=== PATIENT | female | born 1960 | race Caucasian/White ===

== ENCOUNTER → 2021-03-08 10:46 | Outpatient (CLI) | payer BC, SELFPAY ==
--- NOTE | ~2021-03-08 | CT_ITS ---
EXAMINATION: CT abdomen pelvis wo con DATE: 03/08/2021 11:18 INDICATION: Nephrolithiasis, right lower quadrant pain TECHNIQUE: Computed tomography (CT) of the abdomen and pelvis was performed without intravenous contr ast. The dose-length product (DLP) was 400.36 mGy-cm. Automated exposure control and iterative recons truction technique were employed. COMPARISON: None FINDINGS: Minimal dependent atelectasis is present in the lung bases. The heart size is normal. The l iver, spleen, pancreas, gallbladder, and adrenal glands are normal. There is a 6 mm stone at the righ t ureterovesicular junction which causes moderate right hydroureteronephrosis. There are four nonobst ructing stones of the left kidney which measure up to 3 mm. No pathologically enlarged abdominal or p elvic lymph nodes are identified. There is no free intraperitoneal gas or evidence of bowel obstructi on. A fat-containing umbilical hernia is noted. IMPRESSION: 1. 6 mm stone at the right ureterovesicular junction causing moderate right hydroureteronephrosis. 2. Nonobstructing left nephrolithiasis. Reviewed, dictated and finalized at location B. IMPRESSION: 1. 6 mm stone at the right ureterovesicular junction causing moderate right hyd roureteronephrosis. 2. Nonobstructing left nephrolithiasis.
== END ==
PROVIDERS: PCP Internal Medicine
DX: N20.2 Calculus of kidney with calculus of ureter (principal)
CPT/HCPCS: 74176

== ENCOUNTER → 2021-07-02 07:48 | Outpatient (CLI) | payer BC, SELFPAY ==
--- NOTE | ~2021-07-02 | US_ITS ---
EXAMINATION: US retroperitoneal comp DATE: 07/02/2021 08:21 INDICATION: Nephrolithiasis, right flank and pelvic pain TECHNIQUE: Multiple grayscale and Doppler ultrasound images of the kidneys were obtained. COMPARISON: CT, 03/08/2021 FINDINGS: The right kidney measures 10.3 x 4.8 x 5.1 cm. The left kidney measures 10.3 x 5.7 x 6.3 cm . The kidneys demonstrate normal parenchymal echogenicity. There is no hydronephrosis. The bladder is normal. IMPRESSION: 1. Normal kidneys without hydronephrosis. Reviewed, dictated and finalized at location B.
== END ==
PROVIDERS: PCP Internal Medicine
DX: N20.0 Calculus of kidney (principal)
CPT/HCPCS: 76770

== ENCOUNTER → 2021-10-02 10:15 | Outpatient (CLI) | payer BC, SELFPAY ==
--- NOTE | ~2021-10-02 | XR_ITS ---
EXAMINATION: XR abdomen/kub 1V INDICATION: Lower abdominal pain TECHNIQUE: Supine views of the abdomen were obtained on 2 radiographs. COMPARISON: CT, 03/08/2021 FINDINGS: There are stones measuring 7 mm and 3 mm in the lower pole of left kidney and 3 mm in the u pper pole of the left kidney. Bilateral pelvic calcifications likely reflect phleboliths. The visuali zed lung bases are clear. The bowel gas pattern is normal. There are no dilated loops of bowel. A mod erate volume of colonic stool is present. IMPRESSION: 1. Left nephrolithiasis. Reviewed, dictated and finalized at location B. ROLLER IMPRESSION: 1. Left nephrolithiasis.
== END ==
PROVIDERS: PCP Internal Medicine
DX: N20.0 Calculus of kidney (principal)
CPT/HCPCS: 74018

== ENCOUNTER → 2021-11-09 12:58 | Outpatient (CLI) | payer BC, SELFPAY ==
--- NOTE | ~2021-11-09 | MM_ITS ---
EXAMINATION: MM screening [facility] BI w leon HISTORY: Screening TECHNIQUE: Craniocaudal and mediolateral oblique 3-D tomosynthesis images were obtained and synthetic 2-D images were generated. CAD analysis was submitted and interpreted. COMPARISON: Comparison to multiple prior studies sequentially, with oldest reviewed study dated 09/25. BREAST PARENCHYMAL COMPOSITION: There are scattered areas of fibroglandular density. FINDINGS: There is no evidence of suspicious mass, calcification, or architectural distortion to sugg est malignancy in either breast. There has been no suspicious interval change. IMPRESSION: 1. No mammographic evidence of malignancy. 2. Recommend routine screening mammography in one year. BI-RADS Category 1: Negative Reviewed, dictated and finalized at location A. 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
== END ==
PROVIDERS: PCP Internal Medicine; Visit Provider Obstetrics & Gynecology
DX: Z12.31 Encounter for screening mammogram for malignant neoplasm of breast (principal)
CPT/HCPCS: 77063; 77067

== ENCOUNTER → 2021-11-14 12:01 | Outpatient (CLI) | payer BC, SELFPAY ==
--- NOTE | ~2021-11-14 | DEXA_ITS ---
Bone Density Report Name: KIANA ROO Age: 61 Sex: Female Ethnicity: White Date of : 1960 Indication: postmenopausal; screening for osteoporosis; hysterectomy; Referring Provider: RickYazan Study: Bone densitometry was performed. Exam Date: November 14, 2021 Accession number: [id number] Bone Density: Region BMD T-score Z-score Classification AP Spine (L1-L4) 1.022 -0.2 1.4 Normal Femoral Neck (Left) 0.841 -0.1 1.3 Normal Total Hip (Left) 1.000 0.5 1.6 Normal Femoral Neck (Right) 0.836 -0.1 1.3 Normal Total Hip (Right) 0.956 0.1 1.2 Normal Total Hip Mean 0.978 0.3 1.4 Normal World Health Organization criteria for BMD impression classify patients as: Normal (T-score at or above -1.0), Osteopenia (T-score between -1.0 and -2.5), or Osteoporosis (T-score at or below -2.5). 10-year Fracture Risk: FRAX not reported because: All T-scores for Spine Total, Hip Total, Femoral Neck at or above -1.0 Clinical Information Provided by Patient: Has used the following medications: Vitamin D, Calcium Has the following medical conditions: Hysterectomy Patient maximum height was 63.6 Menopause Age: 33 Does not regularly consume dairy products Onset of menses at age 12 Number of children 2 Impression: The patient has normal bone mass. Discussion: BONE DENSITY IS ABOVE THE MINIMUM DESIRABLE LEVEL AT ALL SKELETAL SITES TESTED. This patient?s bone mineral density is above the minimum desirable level (T-score -1.0 or better) at all sites measured. The patient should follow a healthful lifestyle (good nutrition with adequate calcium and vitamin D, and appropriate weight-bearing exercise). Follow-Up: Consider repeating this study in 5 years or sooner if there is some new clinical indication. Reported by: [facility] on 11/14/2021 12:18:00 PM. Reviewed, dictated and finalized at location AAbi CERVANTES
== END ==
PROVIDERS: PCP Internal Medicine; Visit Provider Internal Medicine
DX: Z78.0 Asymptomatic menopausal state (principal)
CPT/HCPCS: 77080

== ENCOUNTER → 2022-10-01 13:46 | Outpatient (CLI) | payer BC, SELFPAY ==
--- NOTE | ~2022-10-01 | MM_ITS ---
EXAMINATION: MM diagnostic vonda BI w leon HISTORY: Bilateral breast pain TECHNIQUE: ML, MLO and craniocaudal 3-D tomosynthesis images of both breasts were performed and synth etic 2-D images were generated. CAD analysis was submitted and interpreted. COMPARISON: 11/09/2021, 11/07/2020, 10/19/2019bilateral screening mammogram examinations BREAST PARENCHYMAL COMPOSITION: There are scattered areas of fibroglandular density. FINDINGS: There is a biopsy marker on the left; history of prior benign left breast biopsy. No suspic ious mass or architectural distortion, malignant calcification, skin thickening or retraction or sign ificant new or developing density is detected. IMPRESSION: 1. No mammographic evidence of malignancy 2. Routine annual mammographic screening is recommended BI-RADS Category 1: Negative Reviewed, dictated and finalized at location A. 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
== END ==
PROVIDERS: PCP Internal Medicine; Visit Provider Obstetrics & Gynecology
DX: N64.4 Mastodynia (principal)
CPT/HCPCS: 77062; 77066; G0279

== ENCOUNTER → 2022-10-09 09:17 | Outpatient (CLI) | payer BC, SELFPAY ==
--- NOTE | ~2022-10-09 | CT_ITS ---
EXAMINATION: CT abdomen pelvis wo con DATE: 10/09/2022 10:53 INDICATION: Bilateral flank pain. Nephrolithiasis. History of hysterectomy. TECHNIQUE: Computed tomography (CT) of the abdomen and pelvis was performed without intravenous contr ast. Automated exposure control and iterative reconstruction technique were employed. Exam dose: 601 .86 mGy-cm total exam DLP. COMPARISON: 10/02/2021 KUB 03/08/[address] abdomen pelvis FINDINGS: The lung bases are clear. Normal heart size. No pericardial or pleural effusion. There is diffuse hepatic steatosis with minimal spurring primarily in the pericholecystic area. No hepatic, splenic, pancreatic, adrenal or renal space-occupying mass lesion is evident on this limi thad noncontrast examination. The gallbladder is present and appears unremarkable. No bile duct or white creatic duct dilatation. Approximately 3 mm distal right ureteral calculus with mild right hydroureteronephrosis. There are approximately 4 nonobstructing left renal calculi, measuring approximately 3.6 x 10.5 mm ma ximal dimension. No left ureteral calculus or left hydroureteronephrosis. There is mild abdominal aortic calcification but no aneurysm. No intraperitoneal or retroperitoneal o r pelvic mass lesion or adenopathy or ascites. The uterus is surgically absent. The urinary bladder is unremarkable. No bowel obstruction or intraperitoneal free air. Small fat-containing umbilical hernia. No suspicious osteolytic or osteoblastic lesions IMPRESSION: Hepatic steatosis 3 mm distal right ureteral calculus with mild right hydroureteronephrosis Nonobstructive left nephrolithiasis Status post hysterectomy Reviewed, dictated and finalized at Location A. Reviewed, dictated and finalized at location A. 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
== END ==
PROVIDERS: PCP Internal Medicine
DX: N20.0 Calculus of kidney (principal); K76.0 Fatty (change of) liver, not elsewhere classified
CPT/HCPCS: 74176

== ENCOUNTER → 2023-09-11 07:26 | Outpatient (CLI) | payer BC, SELFPAY ==
--- NOTE | ~2023-09-11 | MMUS_ITS ---
EXAMINATION: MM diagnostic vonda BI w leon, US breast BI complete HISTORY: Follow-up right breast asymmetry TECHNIQUE: Additional 3-D tomosynthesis images of the right breast were performed and synthetic 2-D i mages were generated. CAD analysis was submitted and interpreted. High resolution bilateral complete breast ultrasound was performed. COMPARISON: The Comparison to multiple prior studies sequentially, with oldest reviewed study dated 11/07/2020. BREAST PARENCHYMAL COMPOSITION: Breast composed of scattered areas of fibroglandular density FINDINGS: MAMMOGRAPHIC FINDINGS: The left breast is stable without evidence for malignancy. There is focal asymmetry laterally in the right breast on CC view. ULTRASOUND: Complete bilateral US of all 4 quadrants of the breasts and retroareolar region was reviewed. Right breast: At 8:00, 5 cm from the nipple, there is a complex mixed hypoechoic and hyperechoic mass measuring approximately 1 cm greatest dimension. There is marginal vascularity with mixed posterior attenuation. Left breast: At 1:00 near the areola there is a 4 mm cyst. At 11:00, near the areola there is a 4 mm cyst. There are mildly prominent subareolar ducts. There is a small cyst at 1:00, 3 cm from the nippl e. IMPRESSION: 1. Complex 1 cm mass of the right breast at 8:00, 5 cm from the nipple, likely corresponding to mammo graphic finding. No evidence for malignancy in the left breast. 2. Ultrasound-guided right breast biopsy recommended. BI-RADS category 4, suspicious findings. Reviewed, dictated and finalized at location A. IMPRESSION: 1. Complex 1 cm mass of the right breast at 8:00, 5 cm from the nipple, likely corresponding to mammographic finding. No evidence for malignancy in the left b reast. 2. Ultrasound-guided right breast biopsy recommended. BI-RADS category 4, suspicious findings.
== END ==
PROVIDERS: PCP Obstetrics & Gynecology; Visit Provider Obstetrics & Gynecology
DX: N64.4 Mastodynia (principal); R92.8 Other abnormal and inconclusive findings on diagnostic imaging of breast
CPT/HCPCS: 76641; 77062; 77066; G0279

== ENCOUNTER 2024-06-25 07:59 | Outpatient (CLI) | payer MEDICARE, SELFPAY ==
--- NOTE | ~2024-06-25 | MMUS_ITS ---
EXAMINATION: MM diagnostic vonda RT w leon, US breast RT complete HISTORY: Follow-up right breast mass TECHNIQUE: Additional 3-D tomosynthesis images of the right breast were performed and synthetic 2-D i mages were generated. CAD analysis was submitted and interpreted. High resolution complete right [address] st ultrasound was performed. COMPARISON: Comparison to multiple prior studies sequentially, with oldest reviewed study dated 09/25. BREAST PARENCHYMAL COMPOSITION: Not dense: There are scattered areas of fibroglandular density. FINDINGS: MAMMOGRAPHIC FINDINGS: There are no suspicious masses, calcifications or architectural distortion in the right breast was sp ot compression or mediolateral views. There is no skin thickening or nipple inversion. ULTRASOUND: Complete bilateral US of all 4 quadrants of the breasts and retroareolar region was reviewed. Normal heterogeneous echotexture without focal solid or cystic mass. IMPRESSION: 1. No evidence for malignancy in the right breast. 2. Routine yearly screening mammogram and regular clinical breast examination are recommended. BI-RADS Category 1: Negative Reviewed, dictated and finalized at location B. IMPRESSION: 1. No evidence for malignancy in the right breast. 2. Routine yearly screening mammogram and regular clinical breast examination a re recommended. BI-RADS Category 1: Negative
== END 2024-06-25 08:00 ==
PROVIDERS: PCP Obstetrics & Gynecology; Visit Provider Surgery
DX: R92.8 Other abnormal and inconclusive findings on diagnostic imaging of breast (principal)
CPT/HCPCS: 76641; 77061; 77065; G0279

== ENCOUNTER 2024-10-29 15:14 | Outpatient (CLI) | payer MEDICARE, SELFPAY ==
--- NOTE | ~2024-10-29 | MM_ITS ---
EXAMINATION: MM screening vonda LT w leon HISTORY: Screening TECHNIQUE: Craniocaudal and mediolateral oblique 3-D tomosynthesis images were obtained and synthetic 2-D images were generated. CAD analysis was submitted and interpreted. COMPARISON: Comparison to multiple prior studies sequentially, with oldest reviewed study dated 09/25. BREAST PARENCHYMAL COMPOSITION: Not dense: There are scattered areas of fibroglandular density. FINDINGS: There is no evidence of suspicious mass, calcification, or architectural distortion to sugg est malignancy in the left breast. There has been no suspicious interval change. IMPRESSION: 1. No mammographic evidence of malignancy. 2. Recommend routine screening mammography in one year. BI-RADS Category 1: Negative Reviewed, dictated and finalized at location B. 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
== END 2024-10-29 15:15 | disposition home or self-care (01) ==
LOC: MICIMG 15:15
PROVIDERS: PCP Family Medicine; Visit Provider Obstetrics & Gynecology
DX: Z12.31 Encounter for screening mammogram for malignant neoplasm of breast (principal)
CPT/HCPCS: 77063; 77067

== ENCOUNTER 2025-01-18 09:58 | Outpatient (CLI) | payer MEDICARE, SELFPAY ==
--- NOTE | ~2025-01-18 | CT_ITS ---
EXAMINATION: CT abdomen pelvis w con DATE: 01/18/2025 10:30 INDICATION: Epigastric pain TECHNIQUE: Computed tomography (CT) of the abdomen and pelvis was performed with 100 mL Omnipaque-350 intravenous contrast. Automated exposure control and iterative reconstruction technique were employe d. The dose-length product was 731.52 mGy-cm. COMPARISON: 10/09/2022 FINDINGS: Lung bases are clear. Heart size is normal. No pericardial or pleural effusion. Diffuse hepatic steat osis. Gallbladder, spleen, pancreas, bilateral adrenal glands are normal. Small region of cortical sc arring at the lower pole of the right kidney. 1 cm low-attenuation cyst at the lower pole the left ki dney. There are 6 nonobstructing stones in the left kidney, the largest in the lower pole measuring 1 .4 x 0.5 cm. There is urothelial enhancement at the left renal pelvis suggesting possible ascending u rinary tract infection. No left-sided hydronephrosis or ureteral stones. And unchanged mild right hyd roureter without hydronephrosis. Tiny hyperdense focus cannot exclude a 1 mm stone at the distalmost right ureter. Bowels are unremarkable. Bladder is normal. The uterus is not identified and has likely been surgically resected. No free intraperitoneal gas or fluid. No pathologically enlarged abdominal or pelvic lymphadenopathy. Mild lumbar and lower thoracic spondylosis. IMPRESSION: 1. Nonobstructing left nephrolithiasis but with urothelial enhancement at the left renal pelvis which suggests possibility of ascending urinary tract infection. Correlate with urinalysis. 2. Unchanged mild right hydroureter without hydronephrosis with possible 1 mm stone at the distalmost right ureter. 3. Diffuse hepatic steatosis. Reviewed, dictated and finalized at location B. 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 Nonobstructing left nephrolithiasis but with urothelial enhancement at the l eft renal pelvis which suggests possibility of ascending urinary tract infectio n. Correlate with urinalysis. 2. Unchanged mild right hydroureter without hydronephrosis with possible 1 mm s tone at the distalmost right ureter. 3. Diffuse hepatic steatosis.
[2025-01-18 10:19] LABS: Estimated Glomerular Filt Rate > 60
== END 2025-01-18 09:59 | disposition home or self-care (01) ==
LOC: MICIMG 10:00
PROVIDERS: PCP Family Medicine
DX: N20.0 Calculus of kidney (principal); K76.0 Fatty (change of) liver, not elsewhere classified
CPT/HCPCS: 74177; Q9967

== ENCOUNTER 2025-04-29 08:13 | Outpatient (CLI) | payer MEDICARE, SELFPAY ==
--- NOTE | ~2025-04-29 | XR_ITS ---
XR abdomen/kub 1V 04/29/2025 08:31 Indication: Renal stones Procedure: KUB Comparison: 10/02/2021 Findings: There are left renal stones, obscured by bowel gas lung bases unremarkable.. Bowel gas anushka keri nonobstructive. No acute osseous abnormality. There are pelvic phleboliths. Impression: 1: Left nephrolithiasis. Reviewed, dictated and finalized at location A. Impression: 1: Left nephrolithiasis.
== END 2025-04-29 08:14 | disposition home or self-care (01) ==
LOC: MICIMG 08:15
PROVIDERS: PCP Family Medicine; Visit Provider Urology
DX: N20.0 Calculus of kidney (principal)
CPT/HCPCS: 74018

== ENCOUNTER 2025-11-01 10:25 | Outpatient (CLI) | payer MEDICARE, SELFPAY ==
--- NOTE | ~2025-11-01 | MM_ITS ---
EXAMINATION: MM screening vonda BI w leon HISTORY: Screening. TECHNIQUE: Craniocaudal and mediolateral oblique 3-D tomosynthesis images were obtained and synthetic 2-D images were generated. CAD analysis was submitted and interpreted. COMPARISON: 2023, 2022, and 2021. BREAST PARENCHYMAL COMPOSITION: Not Dense: There are scattered areas of fibroglandular FINDINGS: There are bilateral biopsy markers. No suspicious masses are seen. There are no suspicious calcifications. No unexplained architectural distortion is seen. There are no skin or nipple abnormalities identified. There is no adenopathy seen on the images submitted. IMPRESSION: No mammographic evidence to suggest malignancy is seen. The patient may return to screening mammography as per ACR guidelines. BI-RADS 1 - Negative. Reviewed, dictated and finalized at location C. 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
== END 2025-11-01 10:26 | disposition home or self-care (01) ==
LOC: MICIMG 10:27
PROVIDERS: PCP Family Medicine; Visit Provider Obstetrics & Gynecology
DX: Z12.31 Encounter for screening mammogram for malignant neoplasm of breast (principal)
CPT/HCPCS: 77063; 77067